=== PATIENT | male | born 1955 | race Caucasian/White ===

== ENCOUNTER → 2019-04-26 | Outpatient (CLI) | payer OTHER ==
[2019-04-26 09:02] LABS: ABSOLUTE LYMPHOCYTES (AUTO) 0.6 10^3/uL (0.5-4.7); ABSOLUTE MONOCYTES (AUTO) 0.5 10^3/uL (0.1-1.4); ABSOLUTE NEUT (AUTO) 3.6 10^3/uL (1.7-8.2); BASOPHILS % (AUTO) 0.4 % (0-2); EOSINOPHILS % (AUTO) 0.6 % (0-6); HEMATOCRIT 35.1 % (37.9-51.0); HEMOGLOBIN 12.2 g/dL (13.5-17.0); MEAN CORPUSCULAR HEMOGLOBIN 31.6 pg (27.0-33.4); MEAN CORPUSCULAR HGB CONC 34.8 g/dL (32.0-36.0); MEAN CORPUSCULAR VOLUME 91 fl (80-97); PLATELET COUNT 229 10^3/uL (150-450); RED BLOOD COUNT 3.87 10^6/uL (4.35-5.55); RED CELL DISTRIBUTION WIDTH 14.9 % (11.5-14.0); TOTAL CELLS COUNTED % (AUTO) 100 %; WHITE BLOOD COUNT 4.7 10^3/uL (4.0-10.5)
[2019-04-26 09:26] LABS: ALANINE AMINOTRANSFERASE 29 U/L (21-72); ALBUMIN 4.2 g/dL (3.5-5.0); ALKALINE PHOSPHATASE 91 U/L (38-126); ANION GAP 8 (5-19); ASPARTATE AMINO TRANSFERASE 25 U/L (17-59); BILIRUBIN,DIRECT 0.2 mg/dL (0.0-0.4); BILIRUBIN,TOTAL 0.5 mg/dL (0.2-1.3); BLOOD UREA NITROGEN 40 mg/dL (7-20); CALCIUM 9.7 mg/dL (8.4-10.2); CARBON DIOXIDE 30 mmol/L (22-30); CHLORIDE 94 mmol/L (98-107); GLUCOSE 102 mg/dL (75-110); PHOSPHORUS 4.4 mg/dL (2.5-4.5); POTASSIUM 5.1 mmol/L (3.6-5.0); SODIUM 132.3 mmol/L (137-145); TOTAL PROTEIN 6.9 g/dL (6.3-8.2)
[2019-04-26 09:47] LABS: APPEARANCE,URINE CLEAR; BILIRUBIN,URINE NEGATIVE (NEGATIVE); COLOR,URINE YELLOW; GLUCOSE, URINE NEGATIVE (NEGATIVE); KETONES,URINE NEGATIVE (NEGATIVE); LEUKOCYTE ESTERASE,URINE NEGATIVE (NEGATIVE); NITRITE,URINE NEGATIVE (NEGATIVE); PROTEIN,URINE NEGATIVE (NEGATIVE); UROBILINOGEN,URINE NEGATIVE mg/dL (<2.0)
== END ==
LOC: OD 08:27
PROVIDERS: ATTEND Internal Medicine Nephrology
DX: N18.3 Chronic kidney disease, stage 3 (moderate) (principal); I95.9 Hypotension, unspecified; G90.09 Other idiopathic peripheral autonomic neuropathy; C32.1 Malignant neoplasm of supraglottis; G62.9 Polyneuropathy, unspecified
CPT/HCPCS: 36415; 80053; 81001; 82533; 82607; 83735; 83970; 84100; 85025

== ENCOUNTER → 2019-04-26 | Outpatient (CLI) | payer OTHER ==
--- NOTE | 2019-04-26 14:22 | RADIOLOGY REPORT (SQ) ---
EXAM DESCRIPTION: U/S RETROPERITON (RENAL/AORTA) COMPLETED DATE/TIME: 04/26/2019 9:45 am REASON FOR STUDY: N17.9 ACUTE KIDNEY FAILURE, UNSPECIFIED N17.9 ACUTE KIDNEY FAILURE, UNSPECIFIED COMPARISON: None. TECHNIQUE: Dynamic and static grayscale images acquired of the kidneys and bladder and recorded on P ACS. Additional selected color Doppler and spectral images recorded. LIMITATIONS: None. FINDINGS: RIGHT KIDNEY: Normal size. Increased cortical echogenicity. 2 cm cyst upper pole. No solid or suspicious masses. No hydronephrosis. No calcifications. LEFT KIDNEY: Normal size. Increased cortical echogenicity. 1 cm cyst upper pole. No solid or eddy picious masses. No hydronephrosis. No calcifications. BLADDER: Decompressed. OTHER: No other significant finding. IMPRESSION: CHRONIC MEDICAL RENAL DISEASE. NO HYDRONEPHROSIS. TECHNICAL DOCUMENTATION: JOB ID: [id number] [employer]- All Rights Reserved Reading location - IP/workstation name: [email or web address]
== END ==
LOC: RAD 08:57
PROVIDERS: ATTEND Internal Medicine Nephrology
DX: N17.9 Acute kidney failure, unspecified (principal); E86.0 Dehydration; I95.9 Hypotension, unspecified; N18.9 Chronic kidney disease, unspecified
CPT/HCPCS: 76770

== ENCOUNTER → 2019-05-12 | Outpatient (CLI) | payer OTHER ==
[2019-05-12 08:46] LABS: ABSOLUTE EOSINOPHILS # (AUTO) 0.2 10^3/uL (0.0-0.6); ABSOLUTE LYMPHOCYTES (AUTO) 0.5 10^3/uL (0.5-4.7); ABSOLUTE MONOCYTES (AUTO) 0.6 10^3/uL (0.1-1.4); ABSOLUTE NEUT (AUTO) 4.6 10^3/uL (1.7-8.2); BASOPHILS % (AUTO) 0.7 % (0-2); EOSINOPHILS % (AUTO) 2.9 % (0-6); HEMATOCRIT 33.6 % (37.9-51.0); HEMOGLOBIN 11.5 g/dL (13.5-17.0); LYMPHOCYTES % (AUTO) 8.4 % (13-45); MEAN CORPUSCULAR HEMOGLOBIN 32.2 pg (27.0-33.4); MEAN CORPUSCULAR HGB CONC 34.4 g/dL (32.0-36.0); MEAN CORPUSCULAR VOLUME 94 fl (80-97); MONOCYTES % (AUTO) 9.6 % (3-13); PLATELET COUNT 211 10^3/uL (150-450); RED BLOOD COUNT 3.58 10^6/uL (4.35-5.55); SEGMENTED NEUTROPHILS % (AUTO) 78.4 % (42-78); TOTAL CELLS COUNTED % (AUTO) 100 %; WHITE BLOOD COUNT 5.9 10^3/uL (4.0-10.5)
[2019-05-12 09:25] LABS: ALBUMIN 4.1 g/dL (3.5-5.0); ANION GAP 11 (5-19); BLOOD UREA NITROGEN 28 mg/dL (7-20); CARBON DIOXIDE 28 mmol/L (22-30); CHLORIDE 96 mmol/L (98-107); GLUCOSE 133 mg/dL (75-110); PHOSPHORUS 3.5 mg/dL (2.5-4.5); POTASSIUM 4.6 mmol/L (3.6-5.0)
== END ==
LOC: OD 07:53
PROVIDERS: ATTEND Internal Medicine Nephrology
DX: N17.9 Acute kidney failure, unspecified (principal); N18.3 Chronic kidney disease, stage 3 (moderate); I95.9 Hypotension, unspecified; C32.1 Malignant neoplasm of supraglottis; G90.09 Other idiopathic peripheral autonomic neuropathy
CPT/HCPCS: 36415; 80069; 85025

== ENCOUNTER → 2019-06-11 | Outpatient (CLI) | payer OTHER ==
[2019-06-11 08:30] LABS: ABSOLUTE BASOPHILS # (AUTO) 0.1 10^3/uL (0.0-0.2); ABSOLUTE EOSINOPHILS # (AUTO) 0.1 10^3/uL (0.0-0.6); ABSOLUTE LYMPHOCYTES (AUTO) 0.8 10^3/uL (0.5-4.7); ABSOLUTE MONOCYTES (AUTO) 0.4 10^3/uL (0.1-1.4); ABSOLUTE NEUT (AUTO) 4.3 10^3/uL (1.7-8.2); BASOPHILS % (AUTO) 0.9 % (0-2); EOSINOPHILS % (AUTO) 2.2 % (0-6); HEMATOCRIT 38.8 % (37.9-51.0); HEMOGLOBIN 13.3 g/dL (13.5-17.0); LYMPHOCYTES % (AUTO) 14.4 % (13-45); MEAN CORPUSCULAR HEMOGLOBIN 33.3 pg (27.0-33.4); MEAN CORPUSCULAR HGB CONC 34.2 g/dL (32.0-36.0); MEAN CORPUSCULAR VOLUME 97 fl (80-97); PLATELET COUNT 219 10^3/uL (150-450); RED BLOOD COUNT 3.98 10^6/uL (4.35-5.55); RED CELL DISTRIBUTION WIDTH 15.5 % (11.5-14.0); SEGMENTED NEUTROPHILS % (AUTO) 75.5 % (42-78); TOTAL CELLS COUNTED % (AUTO) 100 %; WHITE BLOOD COUNT 5.7 10^3/uL (4.0-10.5)
[2019-06-11 08:50] LABS: ALBUMIN 4.6 g/dL (3.5-5.0); ANION GAP 12 (5-19); BLOOD UREA NITROGEN 24 mg/dL (7-20); CALCIUM 10.2 mg/dL (8.4-10.2); CARBON DIOXIDE 24 mmol/L (22-30); CHLORIDE 105 mmol/L (98-107); GLUCOSE 102 mg/dL (75-110); PHOSPHORUS 3.6 mg/dL (2.5-4.5); POTASSIUM 4.5 mmol/L (3.6-5.0)
== END ==
LOC: OD 08:03
PROVIDERS: ATTEND Internal Medicine Nephrology
DX: N18.3 Chronic kidney disease, stage 3 (moderate) (principal); C32.1 Malignant neoplasm of supraglottis; I95.9 Hypotension, unspecified
CPT/HCPCS: 36415; 80069; 85025

== ENCOUNTER → 2019-07-01 | Outpatient (CLI) | payer OTHER ==
[2019-07-01 08:19] LABS: ABSOLUTE EOSINOPHILS # (AUTO) 0.1 10^3/uL (0.0-0.6); ABSOLUTE LYMPHOCYTES (AUTO) 0.8 10^3/uL (0.5-4.7); ABSOLUTE MONOCYTES (AUTO) 0.4 10^3/uL (0.1-1.4); ABSOLUTE NEUT (AUTO) 4.3 10^3/uL (1.7-8.2); BASOPHILS % (AUTO) 0.7 % (0-2); EOSINOPHILS % (AUTO) 2.1 % (0-6); HEMOGLOBIN 13.3 g/dL (13.5-17.0); LYMPHOCYTES % (AUTO) 14.5 % (13-45); MEAN CORPUSCULAR HEMOGLOBIN 33.7 pg (27.0-33.4); MEAN CORPUSCULAR HGB CONC 34.1 g/dL (32.0-36.0); MEAN CORPUSCULAR VOLUME 99 fl (80-97); PLATELET COUNT 232 10^3/uL (150-450); RED BLOOD COUNT 3.95 10^6/uL (4.35-5.55); SEGMENTED NEUTROPHILS % (AUTO) 75.7 % (42-78); TOTAL CELLS COUNTED % (AUTO) 100 %; WHITE BLOOD COUNT 5.6 10^3/uL (4.0-10.5)
[2019-07-01 08:45] LABS: ANION GAP 10 (5-19); BLOOD UREA NITROGEN 18 mg/dL (7-20); CALCIUM 9.9 mg/dL (8.4-10.2); CARBON DIOXIDE 25 mmol/L (22-30); CHLORIDE 106 mmol/L (98-107); GLUCOSE 91 mg/dL (75-110); POTASSIUM 4.5 mmol/L (3.6-5.0)
== END ==
LOC: OD 07:47
PROVIDERS: ATTEND Internal Medicine Nephrology
DX: N17.9 Acute kidney failure, unspecified (principal); I95.9 Hypotension, unspecified
CPT/HCPCS: 36415; 80048; 83735; 85025

== ENCOUNTER → 2019-07-09 | Outpatient (CLI) | payer OTHER ==
[2019-07-09 08:27] LABS: ABSOLUTE EOSINOPHILS # (AUTO) 0.1 10^3/uL (0.0-0.6); ABSOLUTE MONOCYTES (AUTO) 0.5 10^3/uL (0.1-1.4); ABSOLUTE NEUT (AUTO) 4.6 10^3/uL (1.7-8.2); BASOPHILS % (AUTO) 0.5 % (0-2); EOSINOPHILS % (AUTO) 1.8 % (0-6); HEMATOCRIT 38.4 % (37.9-51.0); HEMOGLOBIN 13.1 g/dL (13.5-17.0); LYMPHOCYTES % (AUTO) 15.7 % (13-45); MEAN CORPUSCULAR HGB CONC 34.2 g/dL (32.0-36.0); MEAN CORPUSCULAR VOLUME 99 fl (80-97); MONOCYTES % (AUTO) 7.5 % (3-13); PLATELET COUNT 232 10^3/uL (150-450); RED BLOOD COUNT 3.86 10^6/uL (4.35-5.55); RED CELL DISTRIBUTION WIDTH 13.4 % (11.5-14.0); SEGMENTED NEUTROPHILS % (AUTO) 74.5 % (42-78); TOTAL CELLS COUNTED % (AUTO) 100 %; WHITE BLOOD COUNT 6.1 10^3/uL (4.0-10.5)
[2019-07-09 08:52] LABS: ANION GAP 10 (5-19); BLOOD UREA NITROGEN 15 mg/dL (7-20); CALCIUM 9.9 mg/dL (8.4-10.2); CARBON DIOXIDE 25 mmol/L (22-30); CHLORIDE 106 mmol/L (98-107); GLUCOSE 87 mg/dL (75-110); POTASSIUM 4.6 mmol/L (3.6-5.0)
== END ==
LOC: OD 07:40
PROVIDERS: ATTEND Internal Medicine Nephrology
DX: N17.9 Acute kidney failure, unspecified (principal); I95.9 Hypotension, unspecified
CPT/HCPCS: 36415; 80048; 83735; 85025

== ENCOUNTER 2019-07-12 14:13 | Inpatient (IN) | payer OTHER ==
[2019-07-12] MEDS ORDERED: NORMAL SALINE 1000 ML 1,000 ML IV ONE ×2 (14:52→15:37)
--- NOTE | 2019-07-12 14:54 | ER Document Report ---
ED Medical Screen (RME) - General Chief Complaint: Possible Kidney Stone Stated Complaint: KIDNEY PAIN/BLOOD PRESSURE ISSUE/URINARY PROBLEM Time Seen by Provider: 07/12/19 14:46 Primary Care Provider: Chelsea DAVIDSON MD [Primary Care Provider] - Follow up as needed TRAVEL OUTSIDE OF THE [place] 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 Patient states that it was started with severe right flank pain 3 days ago that radiated into his groin. Patient states that the flank pain has since improved last night and has not returned today. No fever, chest pain, shortness of breath. I have treated and performed a rapid initial assessment of this patient. A comprehensive ED assessment and evaluation of the patient, analysis of test results and completion of medical decision making process will be conducted by additional ED providers. PHYSICAL EXAMINATION: GENERAL: Well-appearing, well-nourished and in no acute distress. A&Ox4. Answers questions appropriately. - Related Data Allergies/Adverse Reactions: morphine [Morphine] Allergy (Verified 10/23/13 08:31) Past Medical History - Social History Chew tobacco use (# tins/day): No Frequency of alcohol use: None Drug Abuse: None - Past Medical History Cardiac Medical History: Reports: Hx Hypercholesterolemia Denies: Hx Hypertension Pulmonary Medical History: Reports: Hx COPD Past Surgical History: Reports: Hx Abdominal Surgery - ABD aorta repair 2004 due to aortic stenosis, Hx Orthopedic Surgery - back - Immunizations Hx Diphtheria, Pertussis, Tetanus Vaccination: No Physical Exam - Vital signs Vitals: Temp Pulse Resp BP Pulse Ox 97.6 F 61 20 79/46 L 96 07/12/19 14:35 07/12/19 14:35 07/12/19 14:35 07/12/19 14:35 07/12/19 14:35 Course - Vital Signs Vital signs: Temp Pulse Resp BP Pulse Ox 97.6 F 61 20 76/48 L 96 07/12/19 14:35 07/12/19 14:35 07/12/19 14:35 07/12/19 14:51 07/12/19 14:35 Doctor's Discharge - Discharge Referrals: Chelsea DAVIDSON MD [Primary Care Provider] - Follow up as needed
[2019-07-12] MEDS ORDERED: RINGERS LACTATED IV ONE (15:36)
--- NOTE | 2019-07-12 15:43 | ER Document Report ---
ED General - General Chief Complaint: Possible Kidney Stone Stated Complaint: KIDNEY PAIN/BLOOD PRESSURE ISSUE/URINARY PROBLEM Time Seen by Provider: 07/12/19 14:46 Primary Care Provider: Chelsea TAFOYA MD [ACTIVE STAFF] - Follow up as needed Notes: 63 year old male sent in from Dr. Tafoya's office for hypotension. Patient states that he feels goofy in his head and dizzy. States that he is been having trouble for the past few weeks with maintaining his blood pressure. States he was told it is because his kidneys are trying to heal from damage from his chemotherapy but stopped 5 months ago. Patient had to get 3 L of fluid at [facility] last week. Patient complains of right flank pain radiating down to his right groin associated with decreased urine output, increased frequency, dribbling of his u rine and dysuria. States that the pain worsened last evening but the urinary output improved but he had decreased frequency last evening. States he has a history of a kidney stone back in 1981 and this does not feel the same. Also states that his right leg has been numb from his foot to his buttock intermittently for the past 2 days. Patient states that this is happened on and off for years as he has difficulty with his vasculature. 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 He has a PET scan scheduled for tomorrow. TRAVEL OUTSIDE OF THE [place] IN LAST 30 DAYS: No - Related Data Allergies/Adverse Reactions: morphine [Morphine] Allergy (Verified 10/23/13 08:31) Past Medical History - General Information source: Patient - Social History Smoking Status: Current Every Day Smoker Chew tobacco use (# tins/day): No Frequency of alcohol use: None Drug Abuse: None Family History: None Patient has suicidal ideation: No Patient has homicidal ideation: No - Past Medical History Cardiac Medical History: Reports: Hx Hypercholesterolemia Denies: Hx Hypertension Pulmonary Medical History: Reports: Hx COPD Past Surgical History: Reports: Hx Abdominal Surgery - ABD aorta repair 2005 due to aortic stenosis, Hx Orthopedic Surgery - back - Immunizations Hx Diphtheria, Pertussis, Tetanus Vaccination: No Review of Systems - Review of Systems Constitutional: See HPI, Weakness Gastrointestinal: See HPI Genitourinary: See HPI Male Genitourinary: See HPI Neurological/Psychological: See HPI -: Yes All other systems reviewed and negative Physical Exam - Vital signs Vitals: Temp Pulse Resp BP Pulse Ox 97.6 F 61 20 79/46 L 96 07/12/19 14:35 07/12/19 14:35 07/12/19 14:35 07/12/19 14:35 07/12/19 14:35 Interpretation: Hypotensive - Notes Notes: GENERAL: Alert, interacts well. No acute distress. HEAD: Normocephalic, atraumatic EYES: Pupils equal, round and reactive to light, extraocular movements intact. ENT: Oral mucosa moist, tongue midline. Voice is hoarse NECK: Full range of motion, supple, trachea midline. LUNGS: Clear to auscultation bilaterally, no wheezes, rales or rhonchi, no respiratory distress. HEART: Regular rate and rhythm, no murmurs, gallops, rubs. Port accessed on the right side of the chest without difficulty. ABDOMEN: Soft, nontender, nondistended, bowel sounds present in all 4 quadrants. EXTREMITIES: Moves all 4 extremities spontaneously, no edema, radial and dorsalis pedis pulses 1/4 bilaterally. No cyanosis. NEUROLOGICAL: Alert and oriented x3, normal speech, no facial droop, hoarse voice, biceps and patellar DTRs 2+ bilaterally. PSYCH: Normal mood, normal affect. SKIN: Warm, Dry, normal turgor. Course - Re-evaluation Re-evalutation: 07/12/19 18:11 CBC shows anemia with hemoglobin 11.2, INR prolonged at 2.48, venous blood gas unremarkable, renal failure shown on CMP with BUN 23 and a creatinine of 2.68, lactic acid actually low, troponin is negative, urinalysis only shows trace leukocyte esterase, blood cultures are pending, chest x-ray shows no acute process, CT scan of the abdomen pelvis was not able to be given IV contrast as he had renal failure, no evidence of obstructing stones, there is minimal hydronephrosis with hydroureter on the left, this would not account for decreased urine output. 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 This is also not causing his pain or decreased urine output. 07/12/19 18:16 Initially with a Cheek catheter was inserted patient had no urine output whatsoever, over the next hour and a half he only had 25 mL's of bloody urine output. This only showed trace leukocyte esterase. There was not enough for culture. Patient has since had another liter of fluid and has actually had significant improvement in his blood pressure, now it is 123 systolic. He is starting to have improved urine output, now he has approximately 150 mL's of bloody urine in the Cheek catheter. Discussed patient with Dr. Rick as well as Tammi Izaguirre nurse practitioner who agreed to accept the patient to the telemetry care service for initially absent urinary output, renal failure and hypotension. They will continue to hydrate the patient overnight and observe him and likely discussed with Dr. Tafoya in the morning. 07/12/19 18:19 Patient is now having intermittent 3 to 4-second episodes of heart rates in the 40s then that rebound into the 50s and 60s. He has no symptoms during these episodes, there is no evidence of heart block at this time. Discussed with Tammi Izaguirre, she will examine the patient and admit him. - Vital Signs Vital signs: Temp Pulse Resp BP Pulse Ox 97.6 F 61 15 91/52 L 100 07/12/19 14:35 07/12/19 14:35 07/12/19 17:01 07/12/19 17:01 07/12/19 17:01 - Laboratory Result Diagrams: 07/12/19 15:28 07/12/19 15:28 Laboratory results interpreted by me: 07/12/19 07/12/19 07/12/19 15:28 15:28 15:28 RBC 3.31 L Hgb 11.2 L Hct 32.9 L MCV 100 H MCH 33.9 H PT 27.3 H BUN 23 H Creatinine 2.68 H Est GFR ( Amer) 29 L Est GFR (MDRD) Non-Af 24 L Lactic Acid AST 15 L Ur Leukocyte Esterase 07/12/19 07/12/19 16:30 16:40 RBC Hgb Hct MCV MCH PT BUN Creatinine Est GFR ( Amer) Est GFR (MDRD) Non-Af Lactic Acid 0.6 L AST Ur Leukocyte Esterase TRACE H - EKG Interpretation by Me Additional EKG results interpreted by me: 07/12/19 18:20 EKG shows accelerated junctional escape rhythm at a rate of 53, no ST segment elevations or depressions, no T wave inversions, normal axis per my interpretation. Critical Care Note - Critical Care Note Total time excluding time spent on procedures (mins): 45 Discharge - Discharge Clinical Impression: Decreased urine output Hypotension Qualifiers: Hypotension type: unspecified hypotension type Qualified Code(s): I95.9 - Hypotension, unspecified Acute renal failure Qualifiers: Acute renal failure type: unspecified Qualified Code(s): N17.9 - Acute kidney failure, unspecified Condition: Fair Disposition: ADMITTED INPATIENT Admitting Provider: Prabhjot (Hospitalist) Unit Admitted: Telemetry Referrals: Chelsea TAFOYA MD [ACTIVE STAFF] - Follow up as needed
[2019-07-12 16:04] LABS: ABSOLUTE EOSINOPHILS # (AUTO) 0.1 10^3/uL (0.0-0.6); ABSOLUTE MONOCYTES (AUTO) 0.5 10^3/uL (0.1-1.4); ABSOLUTE NEUT (AUTO) 3.8 10^3/uL (1.7-8.2); BASOPHILS % (AUTO) 0.5 % (0-2); EOSINOPHILS % (AUTO) 1.9 % (0-6); HEMATOCRIT 32.9 % (37.9-51.0); HEMOGLOBIN 11.2 g/dL (13.5-17.0); LYMPHOCYTES % (AUTO) 18.3 % (13-45); MEAN CORPUSCULAR HEMOGLOBIN 33.9 pg (27.0-33.4); MEAN CORPUSCULAR HGB CONC 34.1 g/dL (32.0-36.0); MEAN CORPUSCULAR VOLUME 100 fl (80-97); MONOCYTES % (AUTO) 8.7 % (3-13); PLATELET COUNT 211 10^3/uL (150-450); RED BLOOD COUNT 3.31 10^6/uL (4.35-5.55); RED CELL DISTRIBUTION WIDTH 13.4 % (11.5-14.0); SEGMENTED NEUTROPHILS % (AUTO) 70.6 % (42-78); TOTAL CELLS COUNTED % (AUTO) 100 %; WHITE BLOOD COUNT 5.3 10^3/uL (4.0-10.5)
[2019-07-12 16:09] LABS: INTERNATIONAL RATION (INR) 2.48; PROTHROMBIN TIME 27.3 SEC (11.4-15.4)
[2019-07-12 16:22] LABS: ALKALINE PHOSPHATASE 70 U/L (38-126); ANION GAP 7 (5-19); ASPARTATE AMINO TRANSFERASE 15 U/L (17-59); BILIRUBIN,DIRECT 0.1 mg/dL (0.0-0.4); BILIRUBIN,TOTAL 0.5 mg/dL (0.2-1.3); BLOOD UREA NITROGEN 23 mg/dL (7-20); CALCIUM 9.6 mg/dL (8.4-10.2); CARBON DIOXIDE 27 mmol/L (22-30); CHLORIDE 105 mmol/L (98-107); GLUCOSE 102 mg/dL (75-110); TOTAL PROTEIN 6.6 g/dL (6.3-8.2)
--- NOTE | 2019-07-12 16:33 | RADIOLOGY REPORT (SQ) ---
EXAM DESCRIPTION: CHEST SINGLE VIEW COMPLETED DATE/TIME: 07/12/2019 4:24 pm REASON FOR STUDY: hypotensive COMPARISON: 10/23/2013. NUMBER OF VIEWS: One view. TECHNIQUE: Single frontal radiographic view of the chest acquired. LIMITATIONS: None. FINDINGS: LUNGS AND PLEURA: No opacities, masses or pneumothorax. No pleural effusion. Attenuated bl ood vessels and flattened terry-diaphragms. MEDIASTINUM AND HILAR STRUCTURES: No masses. Contour normal. HEART AND VASCULAR STRUCTURES: Heart normal in size. Normal vasculature. BONES: No acute findings. HARDWARE: Vascular port. OTHER: No other significant finding. IMPRESSION: COPD. NO ACUTE RADIOGRAPHIC FINDING IN THE CHEST. TECHNICAL DOCUMENTATION: JOB ID: [id number] [employer]- All Rights Reserved Reading location - IP/workstation name: [email or web address]
[2019-07-12 17:09] LABS: VENOUS BLOOD BASE EXCESS -2.7 mmol/L; VENOUS BLOOD HCO3 23.8 mmol/L (20-32); VENOUS BLOOD PCO2 48.7 mmHg (35-63); VENOUS BLOOD PH 7.31 (7.30-7.42)
[2019-07-12 17:34] LABS: APPEARANCE,URINE SLIGHTLY-CLOUDY; BILIRUBIN,URINE NEGATIVE (NEGATIVE); COLOR,URINE YELLOW; GLUCOSE, URINE NEGATIVE (NEGATIVE); KETONES,URINE NEGATIVE (NEGATIVE); LEUKOCYTE ESTERASE,URINE TRACE (NEGATIVE); NITRITE,URINE NEGATIVE (NEGATIVE); PROTEIN,URINE NEGATIVE (NEGATIVE); URINE SPECIFIC GRAVITY 1.013; UROBILINOGEN,URINE NEGATIVE mg/dL (<2.0)
--- NOTE | 2019-07-12 17:52 | RADIOLOGY REPORT (SQ) ---
EXAM DESCRIPTION: CT ABD/PELVIS NO ORAL OR IV COMPLETED DATE/TIME: 07/12/2019 5:29 pm REASON FOR STUDY: right flank and RLQ pain COMPARISON: None. TECHNIQUE: CT scan of the abdomen and pelvis performed without intravenous or oral contrast. Images reviewed with lung, soft tissue, and bone windows. Reconstructed coronal and sagittal MPR images revi ewed. All images stored on PACS. All CT scanners at this facility use dose modulation, iterative reconstruction, and/or weight based d osing when appropriate to reduce radiation dose to as low as reasonably achievable (ALARA). [facility]: Dose Right [facility]: CareDose [facility]: Dose Right [facility]: Teradose 4D [facility]: Immunologix RADIATION DOSE: CT Rad equipment meets quality standard of care and radiation dose reduction techniq ues were employed. CTDIvol: 7.6 mGy. DLP: 401 mGy-cm.mGy. LIMITATIONS: None. FINDINGS: LOWER CHEST: No significant findings. No nodules or infiltrates. NON-CONTRASTED LIVER, SPLEEN, ADRENALS: Evaluation limited by lack of IV contrast. No identified sign ificant masses. PANCREAS: No masses. No peripancreatic inflammatory changes. GALLBLADDER: No identified stones by CT criteria. No inflammatory changes to suggest cholecystitis. RIGHT KIDNEY AND URETER: No suspicious masses. Assessment limited by lack of IV contrast. No signif icant calcifications. No hydronephrosis or hydroureter. LEFT KIDNEY AND URETER: No suspicious masses. Assessment limited by lack of IV contrast. A couple s mall intrarenal calculi are present. There is minimal hydronephrosis with hydroureter. No obstruct ing calculus is seen. AORTA AND RETROPERITONEUM: 36 mm aneurysm of the infrarenal abdominal aorta. Left iliac stent. Femo ral/femoral graft. BOWEL AND PERITONEAL CAVITY: Mild sigmoid diverticulosis with no associated inflammation. No obvious bowel mass. APPENDIX: Not identified. PELVIS, BLADDER, AND ABDOMINAL WALL:No abnormal masses. No free fluid. Bladder normal. BONES: Hardware from L4-S1. Anterolisthesis of L5 on S1. OTHER: No other significant finding. IMPRESSION: Left hydronephrosis/hydroureter. No obstructing calculus is seen. Mild diverticulosis coli. 36 mm aneurysm of the infrarenal abdominal aorta with left iliac stent and femoral/ femoral gr aft. Anterolisthesis of L5 on S1 with hardware in the lower lumbar spine. COMMENT: Recommend follow-up evaluation of the abdominal aorta in 2 years. Quality ID # [id number]: Final reports with documentation of one or more dose reduction techniques (e.g., Au tomated exposure control, adjustment of the mA and/or kV according to patient size, use of iterative reconstruction technique) TECHNICAL DOCUMENTATION: JOB ID: [id number] [employer]- All Rights Reserved Reading location - IP/workstation name: [email or web address]
[2019-07-12] MEDS ORDERED: MIDODRINE HCL 5 MG TABLET PO ONE (18:18)
[2019-07-12] MEDS ORDERED: ALBUTEROL SULFATE 0.083% NEB 2.5 MG/3 ML AMPUL NEB PRN (18:45)
[2019-07-12] MEDS ORDERED: PROMETHAZINE HCL INJ 25 MG/1 ML VIAL IV PRN (18:45)
[2019-07-12] MEDS ORDERED: IPRATROPIUM/ALBUTEROL 0.5-2.5 MG/3 ML AMPUL NEB PRN (18:45)
[2019-07-12] MEDS ORDERED: MAG HYDROX/AL HYDROX/SIMETH SUSP 30 ML UDCUP PO PRN (18:45)
--- NOTE | 2019-07-12 19:10 | PDOC H&P ---
History of Present Illness Admission Date/PCP: 07/12/19 18:35 GREG WILSON Patient complains of: fatigue History of Present Illness: JESS JARAMILLO is a 63 year old male with a past medical history of COPD, persistent hypotension, PAD, HLD, lupus, laryngeal cancer (completed chemotherapy and radiation therapy), bilateral femorofemoral bypass, and tobacco dependence who presented to the emergency department from Dr. Tafoya's office with complaint of fatigue, weakness, and hypotension. Evaluation in the emergency department initially found blood pressure 79/46, bradycardia (heart rate 39-65), anemia (Hgb 11.2), INR 2.48 (on anticoagulant; pt unsure of indication), CARA (Cr 2.68/BUN 23/eGFR 24), nml LFTs, troponin, and lactic acid. Urinalysis was positive only for trace leuk esterase. CT abdomen pelvis demonstrated left hydronephrosis and hydroureter without obstruction. Chest x- ray was benign. EKG demonstrated sinus bradycardia. Cheek catheter insertion has unfortunately resulted in gross hematuria. Patient was provided IV fluid resuscitation and now has blood pressures of 132/79. He reports that his dizziness and fatigue have improved. He is referred to the hospitalist service for admission and management of the above-stated complaints and findings. Past Medical History Cardiac Medical History: Reports: Hyperlipidema, Other - Chronic hypotension; peripheral arterial disease Denies: Hypertension Pulmonary Medical History: Reports: Chronic Obstructive Pulmonary Disease (COPD) EENT Medical History: Reports: None Neurological Medical History: Denies: Ischemic CVA Endocrine Medical History: Reports: None, Other - Lupus Renal/ Medical History: Reports: Chronic Kidney Disease Malignancy Medical History: Reports: Other - Laryngeal; status post chemo/radiation treatment GI Medical History: Reports: None Psychiatric Medical History: Reports: Tobacco Dependency Traumatic Medical History: Reports: None Hematology: Reports: Anemia Infectious Medical History: Reports: None Past Surgical History Past Surgical History: Reports: Orthopedic Surgery - back, Other - Bilateral femoral bypass Social History Information Source: Patient Lives with: Family Smoking Status: Current Every Day Smoker Cigarettes Packs Per Day: 1 Frequency of Alcohol Use: Rare Hx Recreational Drug Use: No Drugs: None Hx Prescription Drug Abuse: No - Advance Directive Resuscitation Status: Full Code Family History Family History: Reviewed & Not Pertinent Parental Family History Reviewed: Yes Children Family History Reviewed: Yes Sibling(s) Family History Reviewed.: Yes Medication/Allergy Allergies/Adverse Reactions: morphine [Morphine] Allergy (Verified 10/23/13 08:31) Review of Systems Constitutional: PRESENT: fatigue, weakness. ABSENT: chills, fever(s), headache(s), weight gain, weight loss Eyes: ABSENT: visual disturbances Ears: ABSENT: hearing changes Cardiovascular: ABSENT: chest pain, dyspnea on exertion, edema, orthropnea, palpitations Respiratory: ABSENT: cough, hemoptysis Gastrointestinal: ABSENT: abdominal pain, constipation, diarrhea, hematemesis, hematochezia, nausea, vomiting Genitourinary: PRESENT: difficulty urinating, dysuria. ABSENT: hematuria Musculoskeletal: ABSENT: joint swelling Integumentary: ABSENT: rash, wounds Neurological: ABSENT: abnormal gait, abnormal speech, confusion, dizziness, focal weakness, syncope Psychiatric: ABSENT: anxiety, depression, homidical ideation, suicidal ideation Endocrine: ABSENT: cold intolerance, heat intolerance, polydipsia, polyuria Hematologic/Lymphatic: ABSENT: easy bleeding, easy bruising Physical Exam Vital Signs: Temp Pulse Resp BP Pulse Ox 97.6 F 61 14 132/79 H 100 07/12/19 14:35 07/12/19 14:35 07/12/19 18:32 07/12/19 18:32 07/12/19 18:32 Intake & Output 07/11/19 07/12/19 07/13/19 06:59 06:59 06:59 Intake Total 1999 Balance 1999 Weight 79.3 kg General appearance: PRESENT: no acute distress, cooperative - Pleasant, well- developed, well-nourished Head exam: PRESENT: atraumatic, normocephalic Eye exam: PRESENT: conjunctiva pink, EOMI, PERRLA. ABSENT: scleral icterus Ear exam: PRESENT: normal external ear exam Mouth exam: PRESENT: moist, tongue midline Neck exam: ABSENT: carotid bruit, JVD, lymphadenopathy, thyromegaly Respiratory exam: PRESENT: rhonchi, symmetrical, unlabored. ABSENT: rales, wheezes Cardiovascular exam: PRESENT: bradycardia, RRR, +S1, +S2. ABSENT: diastolic murmur, rubs, systolic murmur Pulses: PRESENT: normal dorsalis pedis pul Vascular exam: PRESENT: normal capillary refill GI/Abdominal exam: PRESENT: normal bowel sounds, soft. ABSENT: distended, guarding, mass, organolmegaly, rebound, tenderness Rectal exam: PRESENT: deferred Gentrourinary exam: PRESENT: indwelling catheter - Gross hematuria secondary to Cheek trauma Extremities exam: PRESENT: full ROM. ABSENT: calf tenderness, clubbing, pedal edema Neurological exam: PRESENT: alert, awake, oriented to person, oriented to place, oriented to time, oriented to situation, CN II-XII grossly intact. ABSENT: motor sensory deficit Psychiatric exam: PRESENT: appropriate affect, normal mood. ABSENT: homicidal ideation, suicidal ideation Skin exam: PRESENT: dry, intact, warm. ABSENT: cyanosis, rash Results Laboratory Results: 07/12/19 15:28 07/12/19 15:28 07/12/19 07/12/19 07/12/19 15:28 15:28 16:30 WBC 5.3 RBC 3.31 L Hgb 11.2 L Hct 32.9 L MCV 100 H MCH 33.9 H MCHC 34.1 RDW 13.4 Plt Count 211 Seg Neutrophils % 70.6 VBG pH VBG pCO2 VBG HCO3 VBG Base Excess Sodium 139.1 Potassium 4.0 Chloride 105 Carbon Dioxide 27 Anion Gap 7 BUN 23 H Creatinine 2.68 H Est GFR ( Amer) 29 L Glucose 102 Lactic Acid 0.6 L Calcium 9.6 Total Bilirubin 0.5 AST 15 L Alkaline Phosphatase 70 Total Protein 6.6 Albumin 4.0 Urine Color Urine Appearance Urine pH Ur Specific Dawson Urine Protein Urine Glucose (UA) Urine Ketones Urine Blood Urine Nitrite Ur Leukocyte Esterase Urine WBC (Auto) Urine RBC (Auto) 07/12/19 07/12/19 16:30 16:40 WBC RBC Hgb Hct MCV MCH MCHC RDW Plt Count Seg Neutrophils % VBG pH 7.31 VBG pCO2 48.7 VBG HCO3 23.8 VBG Base Excess -2.7 Sodium Potassium Chloride Carbon Dioxide Anion Gap BUN Creatinine Est GFR ( Amer) Glucose Lactic Acid Calcium Total Bilirubin AST Alkaline Phosphatase Total Protein Albumin Urine Color YELLOW Urine Appearance SLIGHTLY-CLOUDY Urine pH 5.0 Ur Specific Dawson 1.013 Urine Protein NEGATIVE Urine Glucose (UA) NEGATIVE Urine Ketones NEGATIVE Urine Blood NEGATIVE Urine Nitrite NEGATIVE Ur Leukocyte Esterase TRACE H Urine WBC (Auto) 4 Urine RBC (Auto) 7 07/12/19 15:28 Troponin I < 0.012 Impressions: Abdomen/Pelvis CT 07/12/19 15:36 IMPRESSION: Left hydronephrosis/hydroureter. No obstructing calculus is seen. Mild diverticulosis coli. 36 mm aneurysm of the infrarenal abdominal aorta with left iliac stent and femoral/ femoral graft. Anterolisthesis of L5 on S1 with hardware in the lower lumbar spine. Chest X-Ray 07/12/19 15:36 IMPRESSION: COPD. NO ACUTE RADIOGRAPHIC FINDING IN THE CHEST. Assessment and Plan - Diagnosis (1) Acute renal failure Qualifiers: Acute renal failure type: unspecified Qualified Code(s): N17.9 - Acute kidney failure, unspecified Is this a current diagnosis for this admission?: Yes Plan: Acute on chronic kidney disease. Admitted with creatinine 2.68; Creatinine 1.34 three days ago. Likely prerenal secondary to hypotension. CT abdomen pelvis, without contrast, reveals left hydronephrosis and hydroureter without obstruction. Renal aorta ultrasound from April 2019 demonstrated chronic kidney disease. Cheek catheter was placed with minimal urine output on insertion. Urinalysis was negative for UTI. Evaluation of chronic hypotension as below. Continue maintenance IV fluids. Nephrology is consulted. Avoid nephrotoxic medications as able. Daily chemistries. (2) Hypotension Qualifiers: Hypotension type: unspecified hypotension type Qualified Code(s): I95.9 - Hypotension, unspecified Is this a current diagnosis for this admission?: Yes Plan: Resolved following 2 L IV fluid bolus. Patient presented with blood pressure 79/46; not tachycardic, but symptomatic with fatigue, generalized weakness, and dizziness. Blood pressure now 115/52. Patient endorses a history of chronic hypotension; Dr. Tafoya is recently increased his midodrine to 10 mg p.o. 3 times daily. Echocardiogram pending. Random cortisol pending. Midodrine 5 mg now. Resume midodrine 10 mg 3 times daily. Orthostatics every shift. Continue IV maintenance fluids. Fall precautions. (3) Hematuria Qualifiers: Hematuria type: gross Qualified Code(s): R31.0 - Gross hematuria Is this a current diagnosis for this admission?: Yes Plan: Secondary to Cheek trauma. Flush as needed. Monitor closely for obstruction. (4) Bradycardia Is this a current diagnosis for this admission?: Yes Plan: Unclear etiology; patient confirms that he is not on hypertensive or rate limiting medications. However, he is unable to list his home medication fina ment. He has also noted to be on chronic anticoagulant; presumably Coumadin secondary to elevated INR. Patient denies history of atrial fibrillation; so I do not believe that he is on a beta or calcium channel marito. Monitor on continuous cardiac telemetry. Echocardiogram pending. Random cortisol pending. Check TSH in the morning. Consider cardiology consultation. Patient may benefit from outpatient event monitor. (5) COPD (chronic obstructive pulmonary disease) Is this a current diagnosis for this admission?: Yes Plan: Stable and without exacerbation at this time. We will resume home maintenance inhalers once reconciled. Patient utilizes 2 L per night via nasal cannula while sleeping. We will provide supplemental oxygen as needed to maintain oxygen saturations greater than 89%. As needed nebulizer treatments are available. No indications for antibiotic or steroid therapy at this time. (6) Tobacco dependence Is this a current diagnosis for this admission?: Yes Plan: Smoking cessation is encouraged. Nicotine or placement therapies are provided. - Time Time Spent with patient: 35 or more minutes Smoking Cessation Education: 3 to 10 minutes Medications reviewed and adjusted accordingly: Yes Anticipated discharge: Home Within: within 72 hours
[2019-07-12 19:20] LABS: URINE AMPHETAMINES SCREEN NEGATIVE; URINE BARBITURATES SCREEN NEGATIVE; URINE BENZODIAZEPINES SCREEN NEGATIVE; URINE COCAINE SCREEN NEGATIVE; URINE MARIJUANA (THC) SCREEN NEGATIVE; URINE METHADONE SCREEN NEGATIVE; URINE PHENCYCLIDINE SCREEN NEGATIVE
[2019-07-12] MEDS: FAMOTIDINE 20 MG TABLET PO SCH (21:26)
[2019-07-12] MEDS: NICOTINE 21 MG/24 HR PATCH.TD24 TD SCH (21:27)
[2019-07-12] MEDS: NORMAL SALINE 1000 ML 1,000 ML IV PRN (23:28)
--- NOTE | 2019-07-13 00:26 | EKG REPORT ---
SEVERITY:- ABNORMAL ECG - INCOMPLETE RIGHT BUNDLE BRANCH BLOCK ABNRM R PROG, CONSIDER ASMI OR LEAD PLACEMENT SINUS BRADYCARDIA : Confirmed by: Misti Patel MD 13-Jul-2019 00:25:20
[2019-07-13 06:15] LABS: HEMATOCRIT 36.1 % (37.9-51.0); HEMOGLOBIN 12.1 g/dL (13.5-17.0); MEAN CORPUSCULAR HEMOGLOBIN 33.9 pg (27.0-33.4); MEAN CORPUSCULAR HGB CONC 33.6 g/dL (32.0-36.0); MEAN CORPUSCULAR VOLUME 101 fl (80-97); PLATELET COUNT 191 10^3/uL (150-450); RED BLOOD COUNT 3.58 10^6/uL (4.35-5.55); RED CELL DISTRIBUTION WIDTH 13.8 % (11.5-14.0); WHITE BLOOD COUNT 5.8 10^3/uL (4.0-10.5)
[2019-07-13 09:33] LABS: ANION GAP 5 (5-19); BLOOD UREA NITROGEN 16 mg/dL (7-20); CALCIUM 9.2 mg/dL (8.4-10.2); CARBON DIOXIDE 25 mmol/L (22-30); CHLORIDE 112 mmol/L (98-107); GLUCOSE 81 mg/dL (75-110); POTASSIUM 4.8 mmol/L (3.6-5.0)
[2019-07-13] MEDS: FAMOTIDINE 20 MG TABLET PO SCH ×2 (09:48→21:16)
[2019-07-13] MEDS: DOCUSATE SODIUM 100 MG CAPSULE PO SCH (09:48)
[2019-07-13] MEDS: NICOTINE 21 MG/24 HR PATCH.TD24 TD SCH (09:48)
[2019-07-13] MEDS: MIDODRINE HCL 5 MG TABLET PO SCH ×4 (09:57→18:13)
--- NOTE | 2019-07-13 11:10 | PDOC PROGRESS REPORT ---
Subjective Progress Note for:: 07/13/19 Subjective:: 07/13/2019 patient was admitted for fatigue weakness and hypotension blood pressure 79/46. Patient is feeling better Reason For Visit: CARA Physical Exam Vital Signs: Temp Pulse Resp BP Pulse Ox 97.6 F 62 20 136/64 H 97 07/13/19 00:00 07/13/19 08:16 07/13/19 08:16 07/13/19 08:16 07/13/19 08:16 Intake & Output 07/12/19 07/13/19 07/14/19 06:59 06:59 06:59 Intake Total 1999 2379 Balance 1999 2379 Weight 83.9 kg General appearance: PRESENT: no acute distress Respiratory exam: PRESENT: clear to auscultation delta. ABSENT: rales, rhonchi, wheezes Cardiovascular exam: PRESENT: RRR. ABSENT: diastolic murmur, rubs, systolic murmur Neurological exam: PRESENT: alert, awake, oriented to person, oriented to place, oriented to time, oriented to situation, CN II-XII grossly intact. ABSENT: motor sensory deficit Psychiatric exam: PRESENT: appropriate affect, normal mood. ABSENT: homicidal ideation, suicidal ideation Results Laboratory Results: 07/13/19 05:39 07/13/19 07:59 07/12/19 07/12/19 07/12/19 15:28 15:28 16:30 WBC 5.3 RBC 3.31 L Hgb 11.2 L Hct 32.9 L MCV 100 H MCH 33.9 H MCHC 34.1 RDW 13.4 Plt Count 211 Seg Neutrophils % 70.6 VBG pH VBG pCO2 VBG HCO3 VBG Base Excess Sodium 139.1 Potassium 4.0 Chloride 105 Carbon Dioxide 27 Anion Gap 7 BUN 23 H Creatinine 2.68 H Est GFR ( Amer) 29 L Est GFR (Non-Af Amer) Glucose 102 Lactic Acid 0.6 L Calcium 9.6 Total Bilirubin 0.5 AST 15 L Alkaline Phosphatase 70 Total Protein 6.6 Albumin 4.0 TSH Urine Color Urine Appearance Urine pH Ur Specific Leroy Urine Protein Urine Glucose (UA) Urine Ketones Urine Blood Urine Nitrite Ur Leukocyte Esterase Urine WBC (Auto) Urine RBC (Auto) 07/12/19 07/12/19 07/13/19 16:30 16:40 05:39 WBC 5.8 RBC 3.58 L Hgb 12.1 L Hct 36.1 L MCV 101 H MCH 33.9 H MCHC 33.6 RDW 13.8 Plt Count 191 Seg Neutrophils % VBG pH 7.31 VBG pCO2 48.7 VBG HCO3 23.8 VBG Base Excess -2.7 Sodium Potassium Chloride Carbon Dioxide Anion Gap BUN Creatinine Est GFR ( Amer) Est GFR (Non-Af Amer) Glucose Lactic Acid Calcium Total Bilirubin AST Alkaline Phosphatase Total Protein Albumin TSH Urine Color YELLOW Urine Appearance SLIGHTLY-CLOUDY Urine pH 5.0 Ur Specific Leroy 1.013 Urine Protein NEGATIVE Urine Glucose (UA) NEGATIVE Urine Ketones NEGATIVE Urine Blood NEGATIVE Urine Nitrite NEGATIVE Ur Leukocyte Esterase TRACE H Urine WBC (Auto) 4 Urine RBC (Auto) 7 07/13/19 07/13/19 07/13/19 05:39 05:39 07:59 WBC RBC Hgb Hct MCV MCH MCHC RDW Plt Count Seg Neutrophils % VBG pH VBG pCO2 VBG HCO3 VBG Base Excess Sodium Cancelled 142.1 Potassium Cancelled 4.8 Chloride Cancelled 112 H Carbon Dioxide Cancelled 25 Anion Gap Cancelled 5 BUN Cancelled 16 Creatinine Cancelled 1.65 H Est GFR ( Amer) Cancelled 51 L Est GFR (Non-Af Amer) Cancelled Glucose Cancelled 81 Lactic Acid Calcium Cancelled 9.2 Total Bilirubin AST Alkaline Phosphatase Total Protein Albumin TSH Cancelled Urine Color Urine Appearance Urine pH Ur Specific Leroy Urine Protein Urine Glucose (UA) Urine Ketones Urine Blood Urine Nitrite Ur Leukocyte Esterase Urine WBC (Auto) Urine RBC (Auto) 07/13/19 07:59 WBC RBC Hgb Hct MCV MCH MCHC RDW Plt Count Seg Neutrophils % VBG pH VBG pCO2 VBG HCO3 VBG Base Excess Sodium Potassium Chloride Carbon Dioxide Anion Gap BUN Creatinine Est GFR ( Amer) Est GFR (Non-Af Amer) Glucose Lactic Acid Calcium Total Bilirubin AST Alkaline Phosphatase Total Protein Albumin TSH 9.76 H Urine Color Urine Appearance Urine pH Ur Specific Leroy Urine Protein Urine Glucose (UA) Urine Ketones Urine Blood Urine Nitrite Ur Leukocyte Esterase Urine WBC (Auto) Urine RBC (Auto) 07/12/19 15:28 Troponin I < 0.012 Impressions: Abdomen/Pelvis CT 07/12/19 15:36 IMPRESSION: Left hydronephrosis/hydroureter. No obstructing calculus is seen. Mild diverticulosis coli. 36 mm aneurysm of the infrarenal abdominal aorta with left iliac stent and femoral/ femoral graft. Anterolisthesis of L5 on S1 with hardware in the lower lumbar spine. Chest X-Ray 07/12/19 15:36 IMPRESSION: COPD. NO ACUTE RADIOGRAPHIC FINDING IN THE CHEST. Assessment and Plan - Diagnosis (1) Acute renal failure Qualifiers: Acute renal failure type: unspecified Qualified Code(s): N17.9 - Acute kidney failure, unspecified Is this a current diagnosis for this admission?: Yes Plan: Acute on chronic kidney disease. Admitted with creatinine 2.68; Creatinine 1.34 three days ago. Likely prerenal secondary to hypotension. CT abdomen pelvis, without contrast, reveals left hydronephrosis and hydroureter without obstruction. Renal aorta ultrasound from April 2019 demonstrated chronic kidney disease. Cheek catheter was placed with minimal urine output on insertion. Urinalysis was negative for UTI. Evaluation of chronic hypotension as below. Continue maintenance IV fluids. Nephrology is consulted. Avoid nephrotoxic medications as able. Daily chemistries. 07/13/2019 his recent electrolytes today showed a BUN of 16 creatinine 1.65 and GFR 42. This is improved from a BUN of 23 and a creatinine of 2.68 and a GFR of 24. patient's IV fluids will be put at KVO today (2) COPD (chronic obstructive pulmonary disease) Is this a current diagnosis for this admission?: Yes Plan: Stable and without exacerbation at this time. We will resume home maintenance inhalers once reconciled. Patient utilizes 2 L per night via nasal cannula while sleeping. We will provide supplemental oxygen as needed to maintain oxygen saturations greater than 89%. As needed nebulizer treatments are available. No indications for antibiotic or steroid therapy at this time. 07/13/2019 patient has a history of COPD chest x-ray on admission showed no acute findings. Patient's O2 sat on room air is 97% still no indication for antibiotics or steroids (3) Hematuria Qualifiers: Hematuria type: gross Qualified Code(s): R31.0 - Gross hematuria Is this a current diagnosis for this admission?: Yes Plan: Secondary to Cheek trauma. Flush as needed. Monitor closely for obstruction. 07/13/2019 patient's is upset that he has hematuria secondary to the Cheek insertion according to her. Today we will try bladder irrigation every 4 hours, Dr. Tafoya is scheduled to see the patient today. (4) Hypotension Qualifiers: Hypotension type: unspecified hypotension type Qualified Code(s): I95.9 - Hypotension, unspecified Is this a current diagnosis for this admission?: Yes Plan: Resolved following 2 L IV fluid bolus. Patient presented with blood pressure 79/46; not tachycardic, but symptomatic with fatigue, generalized weakness, and dizziness. Blood pressure now 115/52. Patient endorses a history of chronic hypotension; Dr. Tafoya is recently increased his midodrine to 10 mg p.o. 3 times daily. Echocardiogram pending. Random cortisol pending. Midodrine 5 mg now. Resume midodrine 10 mg 3 times daily. Orthostatics every shift. Continue IV maintenance fluids. Fall precautions. 07/13/2019 since blood pressure has stabilized 139/73 and 143/85. Patient is back on his Midodrine 10 mg 3 times daily now. Echo is pending - Time Time Spent with patient: 35 or more minutes
[2019-07-13] MEDS: NORMAL SALINE 1000 ML 1,000 ML IV PRN (11:23)
[2019-07-13] MEDS: ACETAMINOPHEN 325 MG TABLET PO PRN ×2 (11:47→19:49)
[2019-07-13] MEDS: CEFTRIAXONE 1 GM/D5W RTU 1 GM/50 ML RTUPB IV SCH (19:02)
--- NOTE | 2019-07-13 19:41 | PDOC CONSULTATION ---
Consultation Consult Date: 07/13/19 Provider Consulted: Chelsea DAVIDSON Consult reason:: Acute on chronic kidney disease History of Present Illness Admission Date/PCP: 07/12/19 18:35 GREG WILSON History of Present Illness: JESS JARAMILLO is a 63 year old male with a past medical history of COPD, PAD, laryngeal cancer (completed chemotherapy and radiation therapy), bilateral femorofemoral bypass, and tobacco dependence was admitted to the ER from my office where he presented with complaints of of fatigue, weakness, and hypotension.I had seen him last week for similar issues low blood pressure. His intake has been very poor for obvious reasons. He has been having persistent hypotension for the last couple of months. I had checked his cortisol as an outpatient and was normal. He was begun on Midodrin which is being titrated. However he was completely orthostatic which has been getting worse over the day prior to him being seen in the office.There were no complaints of any chest pain or palpitations. Evaluation in the emergency department initially found blood pressure 79/46, Wi th a creatinine of 2.6. He is admitted for further evaluation and fluid resuscitation. Cheek catheter insertion has unfortunately resulted in gross hematuria. Past Medical History Cardiac Medical History: Reports: Hyperlipidemia, Other - Chronic hypotension; peripheral arterial disease Pulmonary Medical History: Reports: Chronic Obstructive Pulmonary Disease (COPD) EENT Medical History: Reports: None Neurological Medical History: Denies: Ischemic CVA Endocrine Medical History: Reports: None, Other - Lupus Complications of Diabetes: Reports: None Renal/ Medical History: Reports: Other - CARA Denies: Hematuria Malignancy Medical History: Reports: Other - Laryngeal; status post chemo/radiation treatment GI Medical History: Reports: None Psychiatric Medical History: Reports: Tobacco Dependency Traumatic Medical History: Reports: None Infectious Medical History: Reports: None Past Surgical History Past Surgical History: Reports: Orthopedic Surgery - back, Other - Bilateral femoral bypass Social History Lives with: Family Smoking Status: Current Every Day Smoker Cigarettes Packs Per Day: 1 Frequency of Alcohol Use: Rare Hx Recreational Drug Use: No Drugs: None Hx Prescription Drug Abuse: No - Advance Directive Resuscitation Status: Full Code Family History Parental Family History Reviewed: Yes - Negative for CKD Children Family History Reviewed: No Sibling(s) Family History Reviewed.: No Medication/Allergy Home Medications: Acetaminophen [Arthritis Pain Reliever] 650 mg PO Q4HP PRN 07/12/19 Aspirin [Ecotrin 325 mg EC Tablet] 325 mg PO DAILY 07/12/19 Atorvastatin Calcium [Lipitor 10 mg Tablet] 10 mg PO DAILY 07/12/19 Gabapentin [Neurontin] 600 mg PO DAILY 07/12/19 Lactulose [Constulose 10 gm/15 mL Oral Solution] 10 ml PO BID 07/12/19 Magnesium Oxide [Mag-Ox 400 mg Tablet] 400 mg PO DAILY 07/12/19 Midodrine HCl 10 mg PO Q8 07/12/19 Omeprazole 40 mg PO DAILY 07/12/19 Rivaroxaban [Xarelto] 20 mg PO DAILY 07/12/19 Allergies/Adverse Reactions: morphine [Morphine] Allergy (Verified 10/23/13 08:31) Review of Systems Constitutional: PRESENT: anorexia, fatigue, weakness, weight loss. ABSENT: chills, fever(s), headache(s), night sweats Nose, Mouth, and Throat: ABSENT: headache(s), mouth pain, sore throat Cardiovascular: PRESENT: dyspnea on exertion. ABSENT: chest pain, edema, orthropnea Respiratory: PRESENT: dyspnea. ABSENT: cough, hemoptysis Gastrointestinal: ABSENT: abdominal pain, bloating, coffee ground emesis, diarrhea, dysphagia, heartburn, hematemesis, hematochezia, nausea Genitourinary: ABSENT: difficulty urinating, dysuria, hematuria Musculoskeletal: ABSENT: deformity, joint swelling Integumentary: ABSENT: erythema, lesions, pruritus, rash Neurological: PRESENT: dizziness. ABSENT: abnormal speech, confusion, convulsions, focal weakness, frequent falls, vertigo Psychiatric: PRESENT: depression Endocrine: ABSENT: heat intolerance Hematologic/Lymphatic: ABSENT: easy bleeding, easy bruising, lymphadenopathy Physical Exam Vital Signs: Temp Pulse Resp BP Pulse Ox 98.1 F 140 H 19 133/47 H 97 07/13/19 15:31 07/13/19 19:00 07/13/19 15:31 07/13/19 15:31 07/13/19 15:31 Intake & Output 07/12/19 07/13/19 07/14/19 06:59 06:59 06:59 Intake Total 1999 4100 Output Total 1550 Balance 1999 2550 Weight 83.9 kg Exam: Looks very weak and tired and sickly. Eye exam: PRESENT: EOMI, PERRLA Mouth exam: ABSENT: moist Neck exam: ABSENT: lymphadenopathy, meningismus, tenderness, thyromegaly, tracheal deviation Respiratory exam: PRESENT: clear to auscultation delta, decreased breath sounds. ABSENT: crackles Cardiovascular exam: PRESENT: +S1, +S2 GI/Abdominal exam: PRESENT: normal bowel sounds, soft. ABSENT: organomegaly, tenderness Extremities exam: ABSENT: pedal edema Neurological exam: PRESENT: alert, awake, oriented to person, oriented to place Psychiatric exam: PRESENT: appropriate affect Skin exam: ABSENT: erythema, mottled, rash Results Laboratory Results: 07/13/19 05:39 07/13/19 07:59 07/13/19 07/13/19 07/13/19 05:39 05:39 05:39 WBC 5.8 RBC 3.58 L Hgb 12.1 L Hct 36.1 L MCV 101 H MCH 33.9 H MCHC 33.6 RDW 13.8 Plt Count 191 Sodium Cancelled Potassium Cancelled Chloride Cancelled Carbon Dioxide Cancelled Anion Gap Cancelled BUN Cancelled Creatinine Cancelled Est GFR ( Amer) Cancelled Est GFR (Non-Af Amer) Cancelled Glucose Cancelled Calcium Cancelled TSH Cancelled 07/13/19 07/13/19 07:59 07:59 WBC RBC Hgb Hct MCV MCH MCHC RDW Plt Count Sodium 142.1 Potassium 4.8 Chloride 112 H Carbon Dioxide 25 Anion Gap 5 BUN 16 Creatinine 1.65 H Est GFR ( Amer) 51 L Est GFR (Non-Af Amer) Glucose 81 Calcium 9.2 TSH 9.76 H 07/12/19 15:28 Troponin I < 0.012 Impressions: Abdomen/Pelvis CT 07/12/19 15:36 IMPRESSION: Left hydronephrosis/hydroureter. No obstructing calculus is seen. Mild diverticulosis coli. 36 mm aneurysm of the infrarenal abdominal aorta wi th left iliac stent and femoral/ femoral graft. Anterolisthesis of L5 on S1 with hardware in the lower lumbar spine. Chest X-Ray 07/12/19 15:36 IMPRESSION: COPD. NO ACUTE RADIOGRAPHIC FINDING IN THE CHEST. Assessment & Plan - Diagnosis (1) Acute renal failure Qualifiers: Acute renal failure type: unspecified Qualified Code(s): N17.9 - Acute kidney failure, unspecified Is this a current diagnosis for this admission?: Yes Plan: He has prerenal failure in the face of very poor intake and hypotension. Agree with admission for fluid resuscitation. Later start him on Midodrin. See response to the above. (2) COPD (chronic obstructive pulmonary disease) Is this a current diagnosis for this admission?: Yes Plan: As per hospitalist. (3) Hematuria Qualifiers: Hematuria type: gross Qualified Code(s): R31.0 - Gross hematuria Is this a current diagnosis for this admission?: Yes Plan: Traumatic insertion of Cheek catheter. Monitor. (4) Hypotension Qualifiers: Hypotension type: unspecified hypotension type Qualified Code(s): I95.9 - Hypotension, unspecified Is this a current diagnosis for this admission?: Yes Plan: See response to IV fluids. He has already responded to the last 24 hours of fluid resuscitation with blood pressures in the low 100 systolic. He is more awake alert and more responsive and therefore feels better. We will continue on fluid resuscitation.
[2019-07-13] MEDS ORDERED: METOPROLOL TARTRATE PF/INJ 5 MG/5 ML SDV IV PRN (19:48)
[2019-07-14] MEDS: ACETAMINOPHEN 325 MG TABLET PO PRN ×2 (00:23→21:43)
[2019-07-14] MEDS ORDERED: RINGERS SOLUTION,LACTATED 1,000 ML IV ONE (01:15)
[2019-07-14] MEDS: NORMAL SALINE 1000 ML 1,000 ML IV PRN ×2 (02:36→14:24)
[2019-07-14 04:27] LABS: ALBUMIN 2.9 g/dL (3.5-5.0); ALKALINE PHOSPHATASE 58 U/L (38-126); ANION GAP 5 (5-19); ASPARTATE AMINO TRANSFERASE 25 U/L (17-59); BILIRUBIN,DIRECT 0.2 mg/dL (0.0-0.4); BILIRUBIN,TOTAL 0.5 mg/dL (0.2-1.3); BLOOD UREA NITROGEN 17 mg/dL (7-20); CALCIUM 8.8 mg/dL (8.4-10.2); CARBON DIOXIDE 22 mmol/L (22-30); CHLORIDE 112 mmol/L (98-107); GLUCOSE 104 mg/dL (75-110); POTASSIUM 3.9 mmol/L (3.6-5.0); TOTAL PROTEIN 5.3 g/dL (6.3-8.2)
[2019-07-14] MEDS ORDERED: INFLUENZA QUAD (6MOS+) 2019-20 VAC 0.5 ML SYR IM ONE (08:00)
--- NOTE | 2019-07-14 09:52 | PDOC PROGRESS REPORT ---
Subjective Progress Note for:: 07/14/19 Subjective:: 07/13/2019 patient was admitted for fatigue weakness and hypotension blood pressure 79/46. Patient is feeling better 07-14 vital signs are stable this morning blood pressure 126/70, pulse is 83 and regular temperature 98 O2 sat 100% on 2 L. Cheek is draining yellowish with a slight blood-tinged urine in his Cheek not complaining of any pain at this time. Reason For Visit: CARA Physical Exam Vital Signs: Temp Pulse Resp BP Pulse Ox 98.0 F 83 17 126/70 H 100 07/14/19 08:43 07/14/19 08:43 07/14/19 08:43 07/14/19 08:43 07/14/19 08:43 Intake & Output 07/13/19 07/14/19 07/15/19 06:59 06:59 06:59 Intake Total 1999 6221 Output Total 3450 Balance 1999 2771 Weight 83.9 kg 85.6 kg General appearance: PRESENT: no acute distress Respiratory exam: PRESENT: clear to auscultation delta. ABSENT: rales, rhonchi, wheezes Cardiovascular exam: PRESENT: RRR. ABSENT: diastolic murmur, rubs, systolic murmur Gentrourinary exam: PRESENT: other - Only catheter in place, catheter does not have the capability to do continuous bladder irrigation would have to change the catheter to perform CBI. Due to the trauma encountered with placing the first catheter will not change the catheter at this time Neurological exam: PRESENT: alert, awake, oriented to person, oriented to place, oriented to time, oriented to situation, CN II-XII grossly intact. ABSENT: motor sensory deficit Psychiatric exam: PRESENT: appropriate affect, normal mood. ABSENT: homicidal ideation, suicidal ideation Results Laboratory Results: 07/13/19 05:39 07/14/19 04:00 07/13/19 07/14/19 07:59 04:00 Sodium 138.8 Potassium 3.9 Chloride 112 H Carbon Dioxide 22 Anion Gap 5 BUN 17 Creatinine 1.42 H Est GFR ( Amer) > 60 Glucose 104 Calcium 8.8 Total Bilirubin 0.5 AST 25 Alkaline Phosphatase 58 Total Protein 5.3 L Albumin 2.9 L TSH 9.76 H 07/12/19 15:28 Troponin I < 0.012 Impressions: Abdomen/Pelvis CT 07/12/19 15:36 IMPRESSION: Left hydronephrosis/hydroureter. No obstructing calculus is seen. Mild diverticulosis coli. 36 mm aneurysm of the infrarenal abdominal aorta with left iliac stent and femoral/ femoral graft. Anterolisthesis of L5 on S1 with hardware in the lower lumbar spine. Chest X-Ray 07/12/19 15:36 IMPRESSION: COPD. NO ACUTE RADIOGRAPHIC FINDING IN THE CHEST. Assessment and Plan - Diagnosis (1) Acute renal failure Qualifiers: Acute renal failure type: unspecified Is this a current diagnosis for this admission?: Yes (2) COPD (chronic obstructive pulmonary disease) Is this a current diagnosis for this admission?: Yes (3) Hematuria Qualifiers: Hematuria type: gross Qualified Code(s): R31.0 - Gross hematuria Is this a current diagnosis for this admission?: Yes (4) Hypotension Qualifiers: Hypotension type: unspecified hypotension type Qualified Code(s): I95.9 - Hypotension, unspecified Is this a current diagnosis for this admission?: Yes (5) Hypoalbuminemia Is this a current diagnosis for this admission?: Yes (6) Hypothyroid Is this a current diagnosis for this admission?: Yes - Plan Summary Summary: Patient's electrolytes today showed BUN stable at 17 creatinine slightly lower at 1.42 GFR is higher at 51 albumin however is low at 2.9 TSH is high at 9.76 We will order free T3 free T4 we will give albumin today IV fluids are currently at 100 mL's per hour normal saline. Patient continues Rocephin 1 g every 12 hours Cheek catheter is draining yellowish blood-tinged fluid, will not change Cheek catheter to a three-way catheter due to the trauma and placing a new Cheek. We will continue doing bladder irrigations every 4 hours Urine culture blood culture shows no growth in 24 hours - Time Time Spent with patient: 25-34 minutes
[2019-07-14] MEDS: CEFTRIAXONE 1 GM/D5W RTU 1 GM/50 ML RTUPB IV SCH ×2 (10:13→21:43)
[2019-07-14] MEDS: DOCUSATE SODIUM 100 MG CAPSULE PO SCH (10:15)
[2019-07-14] MEDS: FAMOTIDINE 20 MG TABLET PO SCH ×2 (10:15→21:43)
[2019-07-14] MEDS: MIDODRINE HCL 5 MG TABLET PO SCH ×3 (10:15→17:51)
[2019-07-14] MEDS: NICOTINE 21 MG/24 HR PATCH.TD24 TD SCH (10:16)
[2019-07-14] MEDS: LEVOTHYROXINE SODIUM 0.05 MG TABLET PO SCH (11:06)
[2019-07-14] MEDS: ALBUMIN HUMAN 12.5 GM/50 ML RTUINJ IV SCH ×2 (11:07→13:14)
[2019-07-14 11:15] LABS: FREE T3 1.66 pg/mL (2.77-5.27); FREE T4 (FREE THYROXINE) 0.59 ng/dL (0.78-2.19)
--- NOTE | 2019-07-14 16:08 | PDOC PROGRESS REPORT ---
Subjective Progress Note for:: 07/14/19 Reason For Visit: Patient seen today. He says he is not feeling as well as he was yesterday. He denies any history of chest pain or palpitations. Orthostasis are improved but still has on a milder scale. Labs and medications were reviewed. Physical Exam Vital Signs: Temp Pulse Resp BP Pulse Ox 99.3 F 104 H 23 H 131/82 H 97 07/14/19 12:13 07/14/19 14:00 07/14/19 12:13 07/14/19 12:13 07/14/19 12:13 Intake & Output 07/13/19 07/14/19 07/15/19 06:59 06:59 06:59 Intake Total 1999 6221 1150 Output Total 3450 Balance 1999 2771 1150 Weight 83.9 kg 85.6 kg 85.6 kg General appearance: PRESENT: no acute distress Respiratory exam: PRESENT: clear to auscultation delta. ABSENT: crackles Cardiovascular exam: PRESENT: +S1, +S2 GI/Abdominal exam: PRESENT: normal bowel sounds, soft. ABSENT: organomegaly, tenderness Extremities exam: ABSENT: pedal edema Neurological exam: PRESENT: alert, oriented to person, oriented to place Psychiatric exam: PRESENT: appropriate affect Results Laboratory Results: 07/13/19 05:39 07/14/19 04:00 07/14/19 07/14/19 04:00 04:00 Sodium 138.8 Potassium 3.9 Chloride 112 H Carbon Dioxide 22 Anion Gap 5 BUN 17 Creatinine 1.42 H Est GFR ( Amer) > 60 Glucose 104 Calcium 8.8 Total Bilirubin 0.5 AST 25 Alkaline Phosphatase 58 Total Protein 5.3 L Albumin 2.9 L Free T4 0.59 L Free T3 pg/mL 1.66 L 07/12/19 18:48 Cheek Catheter Urine Culture - Final NO GROWTH 2 DAYS 07/12/19 15:28 Troponin I < 0.012 Impressions: Abdomen/Pelvis CT 07/12/19 15:36 IMPRESSION: Left hydronephrosis/hydroureter. No obstructing calculus is seen. Mild diverticulosis coli. 36 mm aneurysm of the infrarenal abdominal aorta with left iliac stent and femoral/ femoral graft. Anterolisthesis of L5 on S1 with hardware in the lower lumbar spine. Chest X-Ray 07/12/19 15:36 IMPRESSION: COPD. NO ACUTE RADIOGRAPHIC FINDING IN THE CHEST. Assessment & Plan - Diagnosis (1) Acute renal failure Qualifiers: Acute renal failure type: unspecified Qualified Code(s): N17.9 - Acute kidney failure, unspecified Is this a current diagnosis for this admission?: Yes Plan: Improving. Continue present lines of management. (2) COPD (chronic obstructive pulmonary disease) Is this a current diagnosis for this admission?: Yes Plan: Improving. As per hospitalist. (3) Hypotension Qualifiers: Hypotension type: unspecified hypotension type Qualified Code(s): I95.9 - Hypotension, unspecified Is this a current diagnosis for this admission?: Yes Plan: Improving on current management. I would continue the same including Midodrin.
--- NOTE | 2019-07-14 20:04 | XCELERA REPORT ---
[address] [address] Transthoracic Echocardiogram Report Name: JESS JARAMILLO Age: 63 yrs Gender: Male : 1955 Patient Status: Inpatient Patient Location: [address] [place], [place] [address] Study Date: 07/13/2019 09:39 AM Height: 72 in Weight: 174 lb BSA: 2.0 m2 Procedure: A two-dimensional transthoracic echocardiogram with color flow and Doppler was performed. Study Quality: Technically suboptimal. Reason For Study: persistent hypotension History: persistent hypotension. Ordering Physician: KELLI CELESTE Performed By: Chel Moeller Interpretation Summary The left ventricle is normal in size. There is normal left ventricular wall thickness. LV EF is 60% Left ventricular systolic function is normal. Doppler measurements suggest impaired left ventricular relaxation, which is associated with grade I/IV or mild diastolic dysfunction The left ventricular wall motion is normal. There is no thrombus. cANNOT ASSESS FOR asd ,vsd ,OR pfo. The right ventricle is not well visualized secondary to technical limitations Right atrium not well visualized secondary to technical limitations The left atrial size is normal. There is no evidence of mitral valve prolapse. There is no vegetation seen on the mitral valve. There is no mitral valve stenosis. There is a trace amount of mitral regurgitation There is no aortic valvular vegetation. There is no aortic valve stenosis No aortic regurgitation is present. There is no tricuspid stenosis. There is a trace amount of tricuspid regurgitation Tricuspid regurgitation jet envelope not well defined to measure RV systolic pressure accurately. There is no pulmonic valvular stenosis. There is no pulmonic valvular regurgitation. The inferior vena cava appeared normal and decreased > 50% with respiration (RAP 5-10 mmHg) There is no pericardial effusion. MMode/2D Measurements & Calculations RVDd: 4.7 cm LVIDd: 4.9 cm FS: 34.0 % Ao root diam: 2.5 cm IVSd: 0.87 cm LVIDs: 3.2 cm EDV(Teich): 113.8 ml Ao root area: 5.1 cm2 LVPWd: 0.87 cm ESV(Teich): 42.3 ml LA dimension: 3.3 cm EF(Teich): 62.8 % Doppler Measurements & Calculations MV E max michelet: MV P1/2t max michelet: Ao V2 max: LV V1 max P.1 cm/sec 66.1 cm/sec 122.8 cm/sec 3.7 mmHg MV A max michelet: MV P1/2t: 72.7 msec Ao max PG: LV V1 max: 75.5 cm/sec MVA(P1/2t): 3.0 cm2 6.0 mmHg 96.7 cm/sec MV E/A: 0.88 MV dec slope: 266.3 cm/sec2 MV dec time: 0.25 sec PA V2 max: MV P1/2t-pr_phl: 84.4 cm/sec 72.7 msec PA max P.8 mmHg Left Ventricle The left ventricle is normal in size. There is normal left ventricular wall thickness. LV EF is 60%. Left ventricular systolic function is normal. Doppler measurements suggest impaired left ventricular relaxation, which is associated with grade I/IV or mild diastolic dysfunction. The left ventricular wall motion is normal. There is no thrombus. cANNOT ASSESS FOR asd ,vsd ,OR pfo. Right Ventricle The right ventricle is not well visualized secondary to technical limitations. Atria Right atrium not well visualized secondary to technical limitations. The left atrial size is normal. Mitral Valve There is no evidence of mitral valve prolapse. There is no vegetation seen on the mitral valve. There is no mitral valve stenosis. There is a trace amount of mitral regurgitation. Aortic Valve There is no aortic valvular vegetation. There is no aortic valve stenosis. No aortic regurgitation is present. Tricuspid Valve There is no tricuspid stenosis. There is a trace amount of tricuspid regurgitation. Tricuspid regurgitation jet envelope not well defined to measure RV systolic pressure accurately. Pulmonic Valve There is no pulmonic valvular stenosis. There is no pulmonic valvular regurgitation. Great Vessels The aortic root is not well visualized but is probably normal size. The inferior vena cava appeared normal and decreased > 50% with respiration (RAP 5-10 mmHg). Effusions There is no pericardial effusion. : KELLI CELESTE Lakshmi
[2019-07-15] MEDS: DOCUSATE SODIUM 100 MG CAPSULE PO SCH (09:01)
[2019-07-15] MEDS: LEVOTHYROXINE SODIUM 0.05 MG TABLET PO SCH (09:02)
[2019-07-15] MEDS: FAMOTIDINE 20 MG TABLET PO SCH (09:02)
[2019-07-15] MEDS: NICOTINE 21 MG/24 HR PATCH.TD24 TD SCH (09:03)
[2019-07-15] MEDS: CEFTRIAXONE 1 GM/D5W RTU 1 GM/50 ML RTUPB IV SCH (09:03)
--- NOTE | 2019-07-15 09:15 | PDOC DISCHARGE SUMMARY ---
Impression - Admit/DC Date/PCP Admission Date/Primary Care Provider: 07/12/19 18:35 GREG WILSON Discharge Date: 07/15/19 - Discharge Diagnosis (1) Acute renal failure Is this a current diagnosis for this admission?: Yes (2) COPD (chronic obstructive pulmonary disease) Is this a current diagnosis for this admission?: Yes (3) Hematuria Is this a current diagnosis for this admission?: Yes (4) Hypotension Is this a current diagnosis for this admission?: Yes (5) Hypoalbuminemia Is this a current diagnosis for this admission?: Yes (6) Hypothyroid Is this a current diagnosis for this admission?: Yes - Assessment Summary: Patient's electrolytes today showed BUN stable at 17 creatinine slightly lower at 1.42 GFR is higher at 51 albumin however is low at 2.9 TSH is high at 9.76 We will order free T3 free T4 we will give albumin today IV fluids are currently at 100 mL's per hour normal saline. Patient continues Rocephin 1 g every 12 hours Cheek catheter is draining yellowish blood-tinged fluid, will not change Cheek catheter to a three-way catheter due to the trauma and placing a new Cheek. We will continue doing bladder irrigations every 4 hours Urine culture blood culture shows no growth in 24 hours - Additional Information Resuscitation Status: Full Code Discharge Diet: As Tolerated Discharge Activity: Balance Activity w/Rest Referrals: ARCENIO CHE MD [NO LOCAL MD] - (PCP OFFICE IS SENDING REFERAL TO DR. CHE'S OFFICE AND THEY WILL CONTACT PATIENT TO MAKE APPOINTMENT. ) Chelsea DAVIDSON MD [ACTIVE STAFF] - Follow up as needed Prescriptions: Cephalexin Monohydrate [Keflex 250 mg Capsule] 250 mg PO Q8 #21 capsule Nicotine [Nicoderm 21 mg/24 Hr Transderm Patch] 1 each TD DAILY #30 patch.[id number] Levothyroxine Sodium [Synthroid 0.05 mg Tablet] 0.05 mg PO Q6AM 90 Days #90 tablet Home Medications: Acetaminophen [Arthritis Pain Reliever] 650 mg PO Q4HP PRN 07/12/19 Aspirin [Ecotrin 325 mg EC Tablet] 325 mg PO DAILY 07/12/19 Atorvastatin Calcium [Lipitor 10 mg Tablet] 10 mg PO DAILY 07/12/19 Gabapentin [Neurontin] 600 mg PO DAILY 07/12/19 Lactulose [Constulose 10 gm/15 mL Oral Solution] 10 ml PO BID 07/12/19 Magnesium Oxide [Mag-Ox 400 mg Tablet] 400 mg PO DAILY 07/12/19 Midodrine HCl 10 mg PO Q8 07/12/19 Omeprazole 40 mg PO DAILY 07/12/19 Rivaroxaban [Xarelto] 20 mg PO DAILY 07/12/19 Cephalexin Monohydrate [Keflex 250 mg Capsule] 250 mg PO Q8 #21 capsule 07/15/19 Levothyroxine Sodium [Synthroid 0.05 mg Tablet] 0.05 mg PO Q6AM 90 Days #90 tablet 07/15/19 Midodrine HCl [Proamatine 5 mg Tablet] 10 mg PO TID tablet 07/15/19 Nicotine [Nicoderm 21 mg/24 Hr Transderm Patch] 1 each TD DAILY #30 patch.td24 07/15/19 History of Present Illiness History of Present Illness: JESS JARAMILLO is a 63 year old male Physical Exam Vital Signs: Temp Pulse Resp BP Pulse Ox 98.4 F 84 16 136/75 H 100 07/15/19 04:53 07/15/19 07:00 07/15/19 04:53 07/15/19 04:53 07/15/19 04:53 Intake & Output 07/14/19 07/15/19 07/16/19 06:59 06:59 06:59 Intake Total 6221 2450 Output Total 3450 1840 Balance 2771 610 Weight 85.6 kg 88.8 kg Results Laboratory Results: WBC 5.8 10^3/uL (4.0-10.5) 07/13/19 05:39 RBC 3.58 10^6/uL (4.35-5.55) L 07/13/19 05:39 Hgb 12.1 g/dL (13.5-17.0) L 07/13/19 05:39 Hct 36.1 % (37.9-51.0) L 07/13/19 05:39 MCV 101 fl (80-97) H 07/13/19 05:39 MCH 33.9 pg (27.0-33.4) H 07/13/19 05:39 MCHC 33.6 g/dL (32.0-36.0) 07/13/19 05:39 RDW 13.8 % (11.5-14.0) 07/13/19 05:39 Plt Count 191 10^3/uL (150-450) 07/13/19 05:39 Lymph % (Auto) 18.3 % (13-45) 07/12/19 15:28 [place] % (Auto) 8.7 % (3-13) 07/12/19 15:28 Eos % (Auto) 1.9 % (0-6) 07/12/19 15:28 Baso % (Auto) 0.5 % (0-2) 07/12/19 15:28 Absolute Neuts (auto) 3.8 10^3/uL (1.7-8.2) 07/12/19 15:28 Absolute Lymphs (auto) 1.0 10^3/uL (0.5-4.7) 07/12/19 15:28 Absolute Monos (auto) 0.5 10^3/uL (0.1-1.4) 07/12/19 15:28 Absolute Eos (auto) 0.1 10^3/uL (0.0-0.6) 07/12/19 15:28 Absolute Basos (auto) 0.0 10^3/uL (0.0-0.2) 07/12/19 15:28 Seg Neutrophils % 70.6 % (42-78) 07/12/19 15:28 PT 27.3 SEC (11.4-15.4) H 07/12/19 15:28 INR 2.48 07/12/19 15:28 VBG pH 7.31 (7.30-7.42) 07/12/19 16:30 VBG pCO2 48.7 mmHg (35-63) 07/12/19 16:30 VBG HCO3 23.8 mmol/L (20-32) 07/12/19 16:30 VBG Base Excess -2.7 mmol/L 07/12/19 16:30 Sodium 138.8 mmol/L (137-145) 07/14/19 04:00 Potassium 3.9 mmol/L (3.6-5.0) 07/14/19 04:00 Chloride 112 mmol/L (98-107) H 07/14/19 04:00 Carbon Dioxide 22 mmol/L (22-30) 07/14/19 04:00 Anion Gap 5 (5-19) 07/14/19 04:00 BUN 17 mg/dL (7-20) 07/14/19 04:00 Creatinine 1.42 mg/dL (0.52-1.25) H 07/14/19 04:00 Est GFR ( Amer) > 60 (>60) 07/14/19 04:00 Est GFR (Non-Af Amer) Cancelled 07/13/19 05:39 Est GFR (MDRD) Non-Af 51 (>60) L 07/14/19 04:00 Glucose 104 mg/dL (75-110) 07/14/19 04:00 POC Glucose 106 mg/dL (70-110) 07/14/19 06:29 Lactic Acid 0.6 mmol/L (0.7-2.1) L 07/12/19 16:30 Calcium 8.8 mg/dL (8.4-10.2) 07/14/19 04:00 Total Bilirubin 0.5 mg/dL (0.2-1.3) 07/14/19 04:00 Direct Bilirubin 0.2 mg/dL (0.0-0.4) 07/14/19 04:00 Neonat Total Bilirubin Not Reportable 07/14/19 04:00 Neonat Direct Bilirubin Not Reportable 07/14/19 04:00 Neonat Indirect Bili Not Reportable 07/14/19 04:00 AST 25 U/L (17-59) 07/14/19 04:00 ALT 12 U/L (<50) 07/14/19 04:00 Alkaline Phosphatase 58 U/L (38-126) 07/14/19 04:00 Troponin I < 0.012 ng/mL 07/12/19 15:28 Total Protein 5.3 g/dL (6.3-8.2) L 07/14/19 04:00 Albumin 2.9 g/dL (3.5-5.0) L 07/14/19 04:00 EGFR Cancelled 07/13/19 05:39 TSH 9.76 uIU/mL (0.47-4.68) H 07/13/19 07:59 Free T4 0.59 ng/dL (0.78-2.19) L 07/14/19 04:00 Free T3 pg/mL 1.66 pg/mL (2.77-5.27) L 07/14/19 04:00 Random Cortisol 6.13 ug/dL (None Established) 07/12/19 15:28 Urine Color YELLOW 07/12/19 16:40 Urine Appearance SLIGHTLY-CLOUDY 07/12/19 16:40 Urine pH 5.0 (5.0-9.0) 07/12/19 16:40 Ur Specific [place] 1.013 07/12/19 16:40 Urine Protein NEGATIVE mg/dL (NEGATIVE) 07/12/19 16:40 Urine Glucose (UA) NEGATIVE mg/dL (NEGATIVE) 07/12/19 16:40 Urine Ketones NEGATIVE mg/dL (NEGATIVE) 07/12/19 16:40 Urine Blood NEGATIVE (NEGATIVE) 07/12/19 16:40 Urine Nitrite NEGATIVE (NEGATIVE) 07/12/19 16:40 Urine Bilirubin NEGATIVE (NEGATIVE) 07/12/19 16:40 Urine Urobilinogen NEGATIVE mg/dL (<2.0) 07/12/19 16:40 Ur Leukocyte Esterase TRACE (NEGATIVE) H 07/12/19 16:40 Urine WBC (Auto) 4 /HPF 07/12/19 16:40 Urine RBC (Auto) 7 /HPF 07/12/19 16:40 U Hyaline Cast (Auto) 5 /LPF 07/12/19 16:40 Squamous Epi Cells Auto 3 /HPF 07/12/19 16:40 Urine Mucus (Auto) RARE /LPF 07/12/19 16:40 Urine Ascorbic Acid NEGATIVE (NEGATIVE) 07/12/19 16:40 Urine Opiates Screen NEGATIVE 07/12/19 16:40 Urine Methadone Screen NEGATIVE 07/12/19 16:40 Ur Barbiturates Screen NEGATIVE 07/12/19 16:40 Ur Phencyclidine Scrn NEGATIVE 07/12/19 16:40 Ur Amphetamines Screen NEGATIVE 07/12/19 16:40 U Benzodiazepines Scrn NEGATIVE 07/12/19 16:40 Urine Cocaine Screen NEGATIVE 07/12/19 16:40 U Marijuana (THC) Screen NEGATIVE 07/12/19 16:40 07/12/19 15:28 Troponin I < 0.012 Impressions: Abdomen/Pelvis CT 07/12/19 15:36 IMPRESSION: Left hydronephrosis/hydroureter. No obstructing calculus is seen. Mild diverticulosis coli. 36 mm aneurysm of the infrarenal abdominal aorta with left iliac stent and femoral/ femoral graft. Anterolisthesis of L5 on S1 with hardware in the lower lumbar spine. Chest X-Ray 07/12/19 15:36 IMPRESSION: COPD. NO ACUTE RADIOGRAPHIC FINDING IN THE CHEST. Stroke Is this a Stroke Patient?: No Acute Heart Failure - Is this a Heart Failure Patient?: No
[2019-07-15] MEDS: MIDODRINE HCL 5 MG TABLET PO SCH (09:20)
[2019-07-15 09:45] VITALS: BP 137/68
[2019-07-15] MEDS ORDERED: PROMETHAZINE HCL INJ 25 MG/1 ML VIAL IV PRN (11:30)
== END 2019-07-15 11:25 | disposition home or self-care (01) | DRG 683 ==
LOC: ER 14:13 → INTOOBSV 18:35 → EH 18:35 → 4N 22:36 → OBSVTOIN 07-15 11:08
PROVIDERS: ADMIT Internal Medicine; ATTEND Internal Medicine
DX: N17.9 Acute kidney failure, unspecified (principal); S37.39XA Other injury of urethra, initial encounter; N13.30 Unspecified hydronephrosis; C32.0 Malignant neoplasm of glottis; E03.9 Hypothyroidism, unspecified; I95.9 Hypotension, unspecified; N18.9 Chronic kidney disease, unspecified; E78.00 Pure hypercholesterolemia, unspecified; J44.9 Chronic obstructive pulmonary disease, unspecified; D64.9 Anemia, unspecified; M32.9 Systemic lupus erythematosus, unspecified; R31.0 Gross hematuria; F17.210 Nicotine dependence, cigarettes, uncomplicated; Z79.01 Long term (current) use of anticoagulants; Z79.82 Long term (current) use of aspirin; Z79.891 Long term (current) use of opiate analgesic; Z79.899 Other long term (current) drug therapy
CPT/HCPCS: 36415; 71045; 74176; 80048; 80053; 80307; 81001; 82533; 82803; 82962; 83605; 84439; 84443; 84481; 84484; 85025; 85027; 85610; 87040; 87070; 87086; 93005; 93010; 93306; 96360; 96361; 99291; G0378; J0696; J1642; J2550; J7030; J7120; P9047

== ENCOUNTER → 2019-07-23 | Outpatient (CLI) | payer OTHER ==
[2019-07-23 13:49] LABS: HEMOGLOBIN 11.9 g/dL (13.5-17.0); MEAN CORPUSCULAR HEMOGLOBIN 32.7 pg (27.0-33.4); MEAN CORPUSCULAR HGB CONC 33.1 g/dL (32.0-36.0); MEAN CORPUSCULAR VOLUME 99 fl (80-97); PLATELET COUNT 308 10^3/uL (150-450); RED BLOOD COUNT 3.64 10^6/uL (4.35-5.55); RED CELL DISTRIBUTION WIDTH 13.5 % (11.5-14.0); WHITE BLOOD COUNT 14.5 10^3/uL (4.0-10.5)
[2019-07-23 14:08] LABS: ABSOLUTE LYMPHOCYTES# (MANUAL) 0.9 10^3/uL (0.5-4.7); ABSOLUTE MONOCYTES # (MANUAL) 0.7 10^3/uL (0.1-1.4); BASOPHILS % (MANUAL) 0 % (0-2); EOSINOPHILS % (MANUAL) 1 % (0-6); LYMPHOCYTES % (MANUAL) 6 % (13-45); MONOCYTES % (MANUAL) 5 % (3-13); SEGMENTED NEUTROPHILS % (MAN) 88 % (42-78); TOTAL CELLS COUNTED 100
[2019-07-23 14:09] LABS: ANISOCYTOSIS SLIGHT; PLATELET COMMENT ADEQUATE
[2019-07-23 14:11] LABS: ANION GAP 11 (5-19); BLOOD UREA NITROGEN 13 mg/dL (7-20); CALCIUM 9.5 mg/dL (8.4-10.2); CARBON DIOXIDE 28 mmol/L (22-30); CHLORIDE 98 mmol/L (98-107); GLUCOSE 93 mg/dL (75-110)
[2019-07-23 14:58] LABS: C DIFFICILE GDH NEGATIVE (NEGATIVE)
== END ==
LOC: OD 11:50
PROVIDERS: ATTEND Internal Medicine Nephrology
DX: K59.1 Functional diarrhea (principal)
CPT/HCPCS: 36415; 80048; 83735; 85025; 87324; 87449

== ENCOUNTER → 2019-10-07 | Outpatient (CLI) | payer OTHER ==
[2019-10-07 13:56] LABS: ALBUMIN 4.3 g/dL (3.5-5.0); ANION GAP 10 (5-19); BLOOD UREA NITROGEN 38 mg/dL (7-20); CALCIUM 9.5 mg/dL (8.4-10.2); CARBON DIOXIDE 23 mmol/L (22-30); CHLORIDE 109 mmol/L (98-107); GLUCOSE 71 mg/dL (75-110); PHOSPHORUS 5.2 mg/dL (2.5-4.5); POTASSIUM 5.6 mmol/L (3.6-5.0)
== END ==
LOC: OD 12:42
PROVIDERS: ATTEND Internal Medicine Nephrology
DX: N18.3 Chronic kidney disease, stage 3 (moderate) (principal); E87.5 Hyperkalemia
CPT/HCPCS: 36415; 80069